=== PATIENT | male | born 2000 | race Caucasian/White ===

== ENCOUNTER 2023-01-23 06:17 | Emergency (ER) | payer OTHER, SELFPAY ==
[2023-01-23 06:24] VITALS: BP 132/96; BP 137/88; PULSE 107; PULSE 86; RESP 16; TEMP 36.4; O2SAT 98; O2SAT 99; BMI 21.9
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
--- OUTSIDE RECORDS SUMMARY | 2023-01-23 06:50 | XMS_ITS | Continuity of Care Document ---
Author Name Unknown Organization [facility] ter Address [address] [place] [address]- Care Team Providers Care Flagsetter Name Role Phone Ttio Solomon MD, Orlando Bustamante Primary Care Physicia n Encounter [facility] [place] Date(s): 03/28/21 - 03/28/[address] [address]- Encounter Diagnosis Hyperemesis(Final) - 03/28/21 Discharge Disposition: A-D/C Home Attending Physician: Leandro Bergman MD Admitting Physician: Leandro Bergman MD Referring Physician: Not on Staff, Referring MD Allergies, Adverse Reactions, Alerts No Known Medication Allergies Substance Reaction Severity Status Apples Hives Active Bananas Hives Active Kiwi Hives Active Melon Hives Active Immunizations Given and Recorded Vaccine Date Status Refusal Reason tetanus/diphtheria/pertussis, acel(Tdap) 02/08/21 Given tetanus/diphtheria/pertussis, acel(Tdap) 08/12/12 Given influenza virus vaccine, inactivated 1 07/16/09 Gi fatimah 1Result Comment: Lot Number [id number] Medications albuterol 0.083% inhalation solution 6 mL [...] Vomiting, # 10 tablet, 0 Refills, Maintenance, 03/10/19 15:52:38 EDT, Tablet Start Date: 01/06/19 Status: Ordered Problem List Condition Effective Dates Status Health Status Inform ant Asthma(Confirmed) Active Mood disorder(Confirmed) Active Vital Signs Most recent to oldest [Reference Range]: 1 2 Oxygen Saturation [94-100 %] 100 % (03/28/21 10:54 AM) 98 % (03/28/21 10:27 AM) Pulse Rate [55-90 bpm] 43 bpm *L* (03/28/21 10:54 AM) 62 bpm (03/28/21 10:27 AM) Blood Pressure [90-138/55-84 mm Hg] 130/ 86mm Hg (03/28/21 10:54 AM) 128/91mm Hg (03/28/21 10:27 AM) Respiratory Rate [16-30 br/min] 18 br/mi n (03/28/21 10:54 AM) 19 br/min (03/28/21 10:27 AM) Temperature [96.8-100.4 DegF] 98.3 DegF (03/28/21 10:27 AM) Mode of Delivery (Oxygen) Room air (03/28/21 10:54 AM) Room air (03/28/21 10:27 AM) Blood pressure sites Arm, left (03/28/21 10:27 AM) Temperature Route Oral (03/28/21 10:27 AM) Social History Social History Type Response Smoking Status 10 or more cigarette s (1/2 pack or more)/day in last 30 days entered on: 01/03/19 Sex
--- OUTSIDE RECORDS SUMMARY | 2023-01-23 06:50 | XMS_ITS | Continuity of Care Document ---
Author Name Unknown Organization [facility] Address [address] [place] [address]- Care Team Providers Care Solutions Architect Consultant Name Role Phone Tito Solomon MD, Orlando Bustamante Primary Care Physicia n Encounter [facility] [place] Date(s): 12/16/22 - 01/15/23 [facility] [address] [place] [address] Attending Physician: Admtr, [id number] Admitting Physician: Admtr, Ar8 Referring Physician: Admtr, Ar8 Allergies, Adverse Reactions, Alerts No Known Medication Allergies Substance Reaction Severity Status Apples Hives Active Bananas Hives Active Kiwi Hives Active Melon Hives Active Immunizations Given and Recorded Vaccine Date Status Refusal Reason tetanus/diphtheria/pertussis, acel(Tdap) 02/08/21 Given tetanus/diphtheria/pertussis, acel(Tdap) 08/12/12 Given influenza virus vaccine, inactivated 1 07/16/09 Gi fatimah 1Result Comment: Lot Number [id number] Medications albuterol 0.083% inhalation solution 6 mL [...] Date: 01/06/19 Status: Ordered Problem List Condition Confirmation Course Effective Dates Status Health St [facility] Informant Asthma Confirmed Active Mood disorder Confirmed Active Social History Social History Type Response Smoking Status 10 or more cigarette s (1/2 pack or more)/day in last 30 days entered on: 01/03/19 Sex Patient Care team information Care Team Personnel Name: Orlando Webb MD Position: [facility] General Pediatrics MD Member Role: PCP Address: Address: [address] [place] [id number] Name: Mary Ragland LPN Position: [facility] Outreach Member Role: Lifetime Consulting Physician Care Team Related Persons Name: CUONG VARMA Address: home [address] [place] [id number] Name: JUDIE VARMA Address: home [address] [place] [id number]
--- OUTSIDE RECORDS SUMMARY | 2023-01-23 06:50 | XMS_ITS | Continuity of Care Document ---
Author Name Unknown Organization [facility] Address [address] [place] [address]- Care Team Providers Care Automobile Brakes Bonder Name Role Phone Tito Solomon MD, Orlando Bustamante Primary Care Physicia n [place] [facility] [place]13[place] - 11/13/[address] [address]- Discharge Disposition: A-D/C Walkout Attending Physician: Not on Staff, Attending MD Admitting Physician: Not on Staff, Admitting MD Referring Physician: Not on Staff, Referring MD Allergies, Adverse Reactions, Alerts No Known Medication Allergies Substance Reaction Severity Status Apples Hives Active Bananas Hives Active Kiwi Hives Active Melon Hives Active Immunizations Given and Recorded Vaccine Date Status Refusal Reason tetanus/diphtheria/pertussis, acel(Tdap) 02/08/21 Given tetanus/diphtheria/pertussis, acel(Tdap) 08/12/12 Given influenza virus vaccine, inactivated 1 07/16/09 Gi fatimah 1Result Comment: Lot Number [id number] Medications albuterol 0.083% inhalation solution 6 mL [...] Asthma Confirmed Active Mood disorder Confirmed Active Vital Signs Most recent to oldest [Reference Range]: 1 2 Oxygen Saturation [94-100 %] 100 % (11/13/22 12:33 PM) 100 % (11/13/22 10:29 AM) Pulse Rate [55-90 bpm] 72 bpm (11/13/22 12:33 PM) 70 bpm (11/13/22 10:29 AM) Blood Pressure [90-138/55-84 mm Hg] 130/ 84mm Hg (11/13/22 12:33 PM) 132/89mm Hg (11/13/22 10:29 AM) Respiratory Rate [16-30 br/min] 16 br/mi n (11/13/22 12:33 PM) 16 br/min (11/13/22 10:29 AM) Temperature [96.8-100.4 DegF] 98.2 DegF (11/13/22 12:33 PM) 98.1 DegF (11/13/22 10:29 AM) Liters per Minute 0 L/min (11/13/22 10:29 AM) Mode of Delivery (Oxygen) Room air (11/13/22 12:33 PM) Room air (11/13/22 10:29 AM) Blood pressure sites Arm, right (11/13/22 12:33 PM) Arm, right (11/13/22 10:29 AM) Temperature Route Oral (11/13/22 12:33 PM) Oral (11/13/22 10:29 AM) Social History Social History Type Response Smoking Status 10 or more cigarette s (1/2 pack or more)/day in last 30 days entered on: 01/03/19 Sex Patient Care team information Care Team Personnel Name: Orlando Webb MD Position: [facility] General Pediatrics MD Member Role: PCP Address: Address: [address] [place] [address], [place] [address]- Name: Mary Ragland LPN Position: [facility] Outreach Member Role: Lifetime Consulting Physician Care Team Related Persons Name: CUONG VARMA Address: home [address] [place] [id number] Name: JUDIE VARMA Address: home [address] [place] [id number]
[2023-01-23 07:01] VITALS: BP 139/90; PULSE 73; RESP 20; O2SAT 98
[2023-01-23 07:12] LABS: MANUAL DIFF FLAG NO
[2023-01-23 07:15] LABS: Basophils Percent Auto 0.1 % (0-2); Eosinophils Percent Auto 0.4 % (0-4); Hematocrit 45.1 % (42.0-52.0); Hemoglobin 15.9 g/dl (14.0-18.0); Imm Gran Abs Auto 0.02 X10*3/uL (0.00-0.03); Imm Gran Pct Auto 0.2 % (0.0-0.4); Lymphocytes Absolute Auto 1.6 X10*3/uL (1.2-4.9); Mean Corpuscular HGB Conc 35.3 g/dl (31.0-36.0); Mean Corpuscular Hemoglobin 30.8 pg (27.0-33.0); Mean Corpuscular Volume 87.2 fL (80.0-98.0); Monocytes Absolute Auto 1.1 X10*3/uL (0.1-1.2); Monocytes Percent Auto 11.6 % (2-11); Neutrophils Absolute Auto 6.5 x10*3/uL (2.0-8.3); Neutrophils Percent Auto 70.7 % (45-73); Platelet Count 186 X10*3/uL (160-400); Red Blood Count 5.17 X10*6/uL (4.60-5.80); Red Cell Distribution Width 11.9 % (11.0-16.0); White Blood Count 9.2 X10*3/uL (4.8-10.8)
--- NOTE | 2023-01-23 07:28 | ED.GENADULT ---
HPI - General Adult General Chief complaint: Abdominal Pain Stated complaint: vomiting w/low abd pain per ems Time Seen by Provider: 01/23/23 06:44 Source: patient Mode of arrival: EMS History of Present Illness HPI narrative: 22-year-old male with arrival via EMS for nausea and vomiting for 2 days and subsequent development of lower abdominal discomfort. Patient states he has had nausea and vomiting as well as diarrhea with a sick contact of his stepdaughter. Related Data Previous Rx's Medication Instructions Recorded ondansetron HCl 4 mg tablet 4 mg PO Q8H PRN nausea and 01/23/23 vomiting 4 days #14 tabs Allergies Allergy/AdvReac Type Severity Reaction Status Date / Time ENVIRONMENTAL Allergy Unknown UNKNOWN Uncoded 07/16/20 16:57 Review of Systems Review of Systems: Pertinent positives and negatives as stated in HPI [facility] Past Medical History Source: nursing notes reviewed Social History Social History Advance Directives: No Advance Directives Information Provided: No Physical Exam ED Vital Signs: Vital Signs - 24 hr 01/23/23 06:24 01/23/23 07:01 01/23/23 09:05 Temperature 97.6 F Pulse Rate 86 73 44 L Respiratory Rate 16 20 18 Blood Pressure 137/88 139/90 H 123/73 Pulse Oximetry 99 98 98 Oxygen Delivery Method Room Air Room Air Room Air BMI result Body Mass Index 21.9 VITAL SIGNS: Reviewed. GENERAL: Well developed, well nourished, in no acute distress. HEAD: Normocephalic/atraumatic EYES: PERRLA, EOMI LUNGS: Normal breath sounds. No adventitious sounds or accessory muscle use. SpO2<99> CARDIOVASCULAR: Regular rate and rhythm without noted murmurs ABDOMEN: Soft, non-tender, non-distended with bowel sounds. MUSCULOSKELETAL: No tenderness, deformities, or effusions noted on gross inspection. EXTREMITIES: No cyanosis, clubbing or edema. SKIN: Inspection of the skin reveals no rashes NEUROLOGIC: Alert and oriented x 4. Strength and sensation to light touch were grossly intact x 4. Medications Administered Discontinued Medications Generic Name Dose Route Start Last Admin Trade Name Freq PRN Reason Stop Dose Admin Sodium Chloride 1,000 mls @ 999 mls/hr 01/23/23 07:45 01/23/23 08:52 Ns IV 01/23/23 08:45 Infused .Q1H1M KYLE Infusion Sodium Chloride 1,000 mls @ 999 mls/hr 01/23/23 08:00 01/23/23 09:53 Ns IV 01/23/23 09:00 Infused .Q1H1M KYLE Infusion Ondansetron HCl 4 mg 01/23/23 07:31 01/23/23 07:51 Ondansetron Hcl 4 Mg/2 Ml Vial IVPUSH 01/23/23 07:32 4 mg ONCE ONE Administration Ondansetron HCl 4 mg 01/23/23 09:52 01/23/23 10:00 Ondansetron Hcl 4 Mg/2 Ml Vial IVPUSH 01/23/23 09:53 4 mg ONCE ONE Administration Medical Decision Making Medical Decision Making MDM Narrative: 22-year-old male with history and clinical presentation suggestive of gastroenteritis. Last episode of diarrhea was yesterday patient states that this has happened before but he denies any alcohol or drug use and has a positive sick contact. Patient will get lab work, urinalysis, IV fluids, antiemetics. Re-evaluation after 2 L of IV hydration, patient is urinating and has tolerated oral intake, he remains mildly nauseous and will go home with a prescription for antinausea medication for the next 1-2 days. He is otherwise stable for discharge. I reviewed all investigations in my interpretation is there may be a component of either gastroenteritis or cyclical vomiting the latter is unclear at this time as we do not have prior visits but urine [employer] is noted to be positive for marijuana. Differential Diagnosis Please see the discussion above Lab Data Please see the discussion above 01/23/23 07:07 01/23/23 07:07 Labs: Lab Results 01/23/23 01/23/23 01/23/23 Range/Units 07:07 07:07 08:13 WBC 9.2 (4.8-10.8) X10*3/uL RBC 5.17 (4.60-5.80) X10*6/uL Hgb 15.9 (14.0-18.0) g/dl Hct 45.1 (42.0-52.0) % MCV 87.2 (80.0-98.0) fL MCH 30.8 (27.0-33.0) pg MCHC 35.3 (31.0-36.0) g/dl RDW 11.9 (11.0-16.0) % Plt Count 186 (160-400) X10*3/uL MPV 10.0 (9.4-12.4) fL Immature Gran % (Auto) 0.2 (0.0-0.4) % Neut % (Auto) 70.7 (45-73) % Lymph % (Auto) 17.0 L (20-40) % [place] % (Auto) 11.6 H (2-11) % Eos % (Auto) 0.4 (0-4) % Baso % (Auto) 0.1 (0-2) % Lymph # (Auto) 1.6 (1.2-4.9) X10*3/uL [place] # (Auto) 1.1 (0.1-1.2) X10*3/uL Eos # (Auto) 0.0 (0.0-0.4) X10*3/uL Baso # (Auto) 0.0 (0.0-0.2) X10*3/uL Abs Immat Gran (auto) 0.02 (0.00-0.03) X10*3/uL Absolute Neuts (auto) 6.5 (2.0-8.3) x10*3/uL Absolute Nucleated RBC 0.000 (0.0-0.012) X10*3/uL Nucleated RBC % (auto) 0.0 (0.0-0.2) /100WBC Sodium 141 (135-145) mmol/L Potassium 3.3 (3.3-5.1) mmol/L Chloride 95 L (96-108) mmol/L Carbon Dioxide 33 H (22-29) mmol/L Anion Gap 16 (12-20) BUN 28 H (9-16) mg/dL Creatinine 1.00 (0.5-1.4) mg/dL Estim Creat Clear Calc 104.9 Estimated GFR > 60 Random Glucose 128 H (60-115) mg/dL Calcium 10.4 H (8.4-10.2) mg/dL Total Bilirubin 0.7 (0.0-1.0) mg/dL AST 19 (5-37) U/L ALT 14 (0-40) U/L Alkaline Phosphatase 57 (39-117) U/L Total Protein 8.3 H (6.5-8.0) g/dL Albumin 5.2 H (3.5-5.0) g/dL Lipase 11 (8-78) U/L Urine Color Urine Appearance Urine pH (5.0-9.0) Ur Specific [place] (1.005-1.025) Urine Protein (Neg-Trace) mg/dL Urine Glucose (UA) (Negative) mg/dL Urine Ketones (Negative) mg/dL Urine Blood (Negative) Urine Nitrite (Negative) Ur Leukocyte Esterase (Negative) Urine RBC (0-2) /HPF Urine WBC (0-5) /HPF Ur Squamous Epith Cells (0-2) /HPF Urine Bacteria (None Seen) Hyaline Casts (0-2) /LPF Urine Opiates Screen (Not Detect) Urine Fentanyl Screen (Not Detect) Ur Barbiturates Screen (Not Detect) Ur Phencyclidine Scrn (Not Detect) Ur Amphetamines Screen (Not Detect) U Benzodiazepines Scrn (Not Detect) Urine Cocaine Screen (Not Detect) U Marijuana (THC) Screen (Not Detect) COVID-19 (ODILIA) Negative (Negative) COVID-19 Clin Com See Note 01/23/23 01/23/23 Range/Units 09:16 09:16 WBC (4.8-10.8) X10*3/uL RBC (4.60-5.80) X10*6/uL Hgb (14.0-18.0) g/dl Hct (42.0-52.0) % MCV (80.0-98.0) fL MCH (27.0-33.0) pg MCHC (31.0-36.0) g/dl RDW (11.0-16.0) % Plt Count (160-400) X10*3/uL MPV (9.4-12.4) fL Immature Gran % (Auto) (0.0-0.4) % Neut % (Auto) (45-73) % Lymph % (Auto) (20-40) % [place] % (Auto) (2-11) % Eos % (Auto) (0-4) % Baso % (Auto) (0-2) % Lymph # (Auto) (1.2-4.9) X10*3/uL [place] # (Auto) (0.1-1.2) X10*3/uL Eos # (Auto) (0.0-0.4) X10*3/uL Baso # (Auto) (0.0-0.2) X10*3/uL Abs Immat Gran (auto) (0.00-0.03) X10*3/uL Absolute Neuts (auto) (2.0-8.3) x10*3/uL Absolute Nucleated RBC (0.0-0.012) X10*3/uL Nucleated RBC % (auto) (0.0-0.2) /100WBC Sodium (135-145) mmol/L Potassium (3.3-5.1) mmol/L Chloride (96-108) mmol/L Carbon Dioxide (22-29) mmol/L Anion Gap (12-20) BUN (9-16) mg/dL Creatinine (0.5-1.4) mg/dL Estim Creat Clear Calc Estimated GFR Random Glucose (60-115) mg/dL Calcium (8.4-10.2) mg/dL Total Bilirubin (0.0-1.0) mg/dL AST (5-37) U/L ALT (0-40) U/L Alkaline Phosphatase (39-117) U/L Total Protein (6.5-8.0) g/dL Albumin (3.5-5.0) g/dL Lipase (8-78) U/L Urine Color Yellow Urine Appearance Clear Urine pH 7.5 (5.0-9.0) Ur Specific [place] >= 1.030 H (1.005-1.025) Urine Protein 30 (1+) H (Neg-Trace) mg/dL Urine Glucose (UA) Negative (Negative) mg/dL Urine Ketones 15 (Negative) mg/dL Urine Blood Negative (Negative) Urine Nitrite Negative (Negative) Ur Leukocyte Esterase Small (1+) H (Negative) Urine RBC 3-5 H (0-2) /HPF Urine WBC 6-10 (0-5) /HPF Ur Squamous Epith Cells 0-2 (0-2) /HPF Urine Bacteria None Seen (None Seen) Hyaline Casts 3-5 (0-2) /LPF Urine Opiates Screen Not Detected (Not Detect) Urine Fentanyl Screen Not Detected (Not Detect) Ur Barbiturates Screen Not Detected (Not Detect) Ur Phencyclidine Scrn Not Detected (Not Detect) Ur Amphetamines Screen Not Detected (Not Detect) U Benzodiazepines Scrn Not Detected (Not Detect) Urine Cocaine Screen Not Detected (Not Detect) U Marijuana (THC) Screen POSITIVE H (Not Detect) COVID-19 (ODILIA) (Negative) COVID-19 Clin Com Discharge Plan Discharge Clinical Impression: Gastroenteritis Patient Disposition: Home, Self-Care Instructions: Gastroenteritis (ED) Additional Instructions: 1. You have a prescription for antinausea medication in should use this to continue to rehydrate yourself. Recommend that you stick to a bland diet for the next 1-2 days. 2. Follow-up with your primary care provider for additional re-evaluation and outpatient management. Return to the ER for any worsening symptoms. Prescriptions: New ondansetron HCl 4 mg tablet 4 mg PO Q8H PRN (Reason: nausea and vomiting) 4 Days Qty: 14 0RF
[2023-01-23 07:29] LABS: Alanine Aminotransferase 14 U/L (0-40); Albumin Level 5.2 g/dL (3.5-5.0); Alkaline Phosphatase 57 U/L (39-117); Anion Gap 16 (12-20); Aspartate Amino Transferase 19 U/L (5-37); Bilirubin Total 0.7 mg/dL (0.0-1.0); Blood Urea Nitrogen 28 mg/dL (9-16); Calcium 10.4 mg/dL (8.4-10.2); Carbon Dioxide 33 mmol/L (22-29); Chloride 95 mmol/L (96-108); Creatinine Clr Calc Pharmacy 104.9; Estimated Glomerular Filt Rate > 60; Glucose Random 128 mg/dL (60-115); Lipase 11 U/L (8-78); Potassium 3.3 mmol/L (3.3-5.1); Sodium 141 mmol/L (135-145); Total Protein 8.3 g/dL (6.5-8.0)
[2023-01-23] MEDS: 0.9 % Sodium Chloride 1,000 ML 999 ML IV ×2 (07:48→08:52)
[2023-01-23] MEDS: ondansetron HCL 4 MG/2 ML VIAL IVPUSH ×2 (07:51→10:00)
[2023-01-23 08:45] LABS: COVID-19 Test Negative (Negative); IDNOW Serial# 55D5AD1C
[2023-01-23 09:05] VITALS: BP 123/73; PULSE 44; RESP 18; O2SAT 98
[2023-01-23 09:22] LABS: Appearance Urine Clear; Color Urine Yellow; Glucose Urine UA Negative (Negative); Leukocyte Esterase Urine Small (1+) (Negative); Nitrite Urine Negative (Negative); PH 7.5 (5.0-9.0); Specific Gravity - Urine >= 1.030 (1.005-1.025); UMIC TRIGGER UACC YES; Urine Blood Negative (Negative); Urine Ketones 15 mg/dL (Negative); Urine Protein 30 (1+) mg/dL (Neg-Trace)
[2023-01-23 09:32] LABS: Amphetamine Screen Urine Not Detected (Not Detect); Barbiturates, Urine Not Detected (Not Detect); Benzodiazepines Screen Urine Not Detected (Not Detect); Cannabinoid Screen Urine POSITIVE (Not Detect); Cocaine Screen Urine Not Detected (Not Detect); Fentanyl, urine Not Detected (Not Detect); Opiate Screen Urine Not Detected (Not Detect); Phencyclidine Screen Urine Not Detected (Not Detect)
[2023-01-23 09:36] LABS: Bacteria Urine None Seen (None Seen); Squamous Epithelial Cell Urine 0-2 /HPF (0-2); UACC Culture Trigger YES
== END 2023-01-23 10:35 | disposition home or self-care (01) ==
PROVIDERS: Emergency Provider Student in an Organized Health Care Education/Training Program
DX: K52.9 Noninfective gastroenteritis and colitis, unspecified (principal); Z20.822 Contact with and (suspected) exposure to COVID-19; Z20.828 Contact with and (suspected) exposure to other viral communicable diseases; Z79.899 Other long term (current) drug therapy
CPT/HCPCS: 36415; 80053; 80307; 81001; 83690; 85025; 87086; 87635; 96361; 96374; 96376; 99284; J2405

== ENCOUNTER 2023-05-10 18:24 | Emergency (ER) | payer SELFPAY ==
--- NOTE | ~2023-05-10 | XR_ITS ---
EXAMINATION: XR CHEST CLINICAL INFORMATION: Dyspnea, wheezing. COMPARISON: None available. TECHNIQUE: 2 views of the chest were obtained. FINDINGS: Mild peribronchial thickening. No focal infiltrate, pleural effusion or pneumothorax. Normal appearance of the cardiomediastinal silhouette. No acute osseous findings. The visualized upper abdomen is within normal limits. XR/XR chest 2V IMPRESSION: Mild peribronchial thickening which could be seen in the setting of asthma, reactive airway disease or atypical/viral infections. No focal infiltrate. Clear pleural spaces.
[2023-05-10 18:51] VITALS: BP 114/74; PULSE 89; RESP 20; TEMP 36.4; O2SAT 97; BMI 23.6
--- NOTE | 2023-05-10 18:53 | ED_ITS ---
HPI - General Adult General Chief complaint: Dyspnea Stated complaint: Asthma/ Diff breathing Time Seen by Provider: 05/10/23 19:25 Related Data Home Medications Medication Instructions Recorded Confirmed albuterol sulfate 90 mcg/actuation 1 puff inhalation Q4H PRN wheezing 05/10/23 05/10/23 aerosol inhaler (ProAir HFA) budesonide-formoterol HFA 80 2 puff inhalation BID 05/10/23 05/10/23 mcg-4.5 mcg/actuation aerosol inhaler (Symbicort) Previous Rx's Medication Instructions Recorded albuterol sulfate 90 mcg/actuation 2 inh inhalation Q6H PRN shortness 05/10/23 breath activated powder inhaler of breath #1 ea prednisone 20 mg tablet 40 mg PO DAILY #10 tabs 05/10/23 Allergies Allergy/AdvReac Type Severity Reaction Status Date / Time ENVIRONMENTAL Allergy Unknown UNKNOWN Uncoded 07/16/20 16:57 PMFSH Social History Social History Advance Directives: No Advance Directives Information Provided: No Physical Exam ED Vital Signs: Vital Signs - 24 hr 05/10/23 18:51 05/10/23 19:18 05/10/23 20:01 Temperature 97.5 F 97.9 F Pulse Rate 89 81 57 Respiratory Rate 20 20 16 Blood Pressure 114/74 126/68 Pulse Oximetry 97 98 Oxygen Delivery Method Room Air Room Air BMI result Body Mass Index 23.6 Course Course Course Narrative: This is a rapid medical exam: Additional HPI, ROS, PE not included below will be deferred to primary provider. Patient is a 23-year-old male with history of asthma presenting to the emergency department with wheezing and shortness of breath. States he felt fine earlier today and symptoms began while at work, he did not have his rescue inhaler. Denies recent cough or fevers. Patient noted to have inspiratory and expiratory wheezing and decreased lung sounds throughout. O2 97-98% on room air. Unsure if he has ever required intubation for asthma exacerbations. Plan: labs, CXR, patient brought directly to room in the main ED Medications Administered Discontinued Medications Generic Name Dose Route Start Last Admin Trade Name Freq PRN Reason Stop Dose Admin Albuterol Sulfate 2.5 mg 05/10/23 19:53 05/10/23 20:00 Albuterol Sulfate (0.083%) 2.5 Mg/3 Ml Vial.Neb INHALE 05/10/23 19:54 2.5 mg ONCE ONE Administration Albuterol Sulfate 2 puff 05/10/23 19:53 05/10/23 20:00 Albuterol Sulfate 90 Mcg 8 Gm Inhaler INHALE 05/10/23 19:54 2 puff ONCE ONE Administration Prednisone 60 mg 05/10/23 19:53 05/10/23 20:22 Prednisone 20 Mg Tablet PO 05/10/23 19:54 60 mg ONCE ONE Administration Medical Decision Making Lab Data 05/10/23 19:26 05/10/23 19:26 Labs: Lab Results 05/10/23 05/10/23 05/10/23 Range/Units 19:26 19:26 19:26 WBC 7.5 (4.8-10.8) X10*3/uL RBC 4.26 L (4.60-5.80) X10*6/uL Hgb 13.0 L (14.0-18.0) g/dl Hct 38.1 L (42.0-52.0) % MCV 89.4 (80.0-98.0) fL MCH 30.5 (27.0-33.0) pg MCHC 34.1 (31.0-36.0) g/dl RDW 12.4 (11.0-16.0) % Plt Count 172 (160-400) X10*3/uL MPV 9.4 (9.4-12.4) fL Immature Gran % (Auto) 0.1 (0.0-0.4) % Neut % (Auto) 62.8 (45-73) % Lymph % (Auto) 26.3 (20-40) % [place] % (Auto) 8.2 (2-11) % Eos % (Auto) 2.1 (0-4) % Baso % (Auto) 0.5 (0-2) % Lymph # (Auto) 2.0 (1.2-4.9) X10*3/uL [place] # (Auto) 0.6 (0.1-1.2) X10*3/uL Eos # (Auto) 0.2 (0.0-0.4) X10*3/uL Baso # (Auto) 0.0 (0.0-0.2) X10*3/uL Abs Immat Gran (auto) 0.01 (0.00-0.03) X10*3/uL Absolute Neuts (auto) 4.7 (2.0-8.3) x10*3/uL Absolute Nucleated RBC 0.000 (0.0-0.012) X10*3/uL Nucleated RBC % (auto) 0.0 (0.0-0.2) /100WBC Sodium 143 (135-145) mmol/L Potassium 3.8 (3.3-5.1) mmol/L Chloride 108 (96-108) mmol/L Carbon Dioxide 23 (22-29) mmol/L Anion Gap 16 (12-20) BUN 15 (9-16) mg/dL Creatinine 0.79 (0.5-1.4) mg/dL Estim Creat Clear Calc 141.8 Estimated GFR > 60 Random Glucose 89 (60-115) mg/dL Calcium 9.9 (8.4-10.2) mg/dL COVID-19 (ODILIA) Negative (Negative) COVID-19 Clin Com See Note Discharge Plan Discharge Clinical Impression: Asthma with exacerbation Patient Disposition: Home, Self-Care Instructions: Asthma (ED) Prescriptions: New prednisone 20 mg tablet 40 mg PO DAILY Qty: 10 0RF albuterol sulfate 90 mcg/actuation aerosol powdr breath activated 2 inh inhalation Q6H PRN (Reason: shortness of breath) Qty: 1 0RF No Action albuterol sulfate [ProAir HFA] 90 mcg/actuation HFA aerosol inhaler 1 puff INHALATION Q4H PRN (Reason: wheezing) budesonide-formoterol [Symbicort] 80-4.5 mcg/actuation HFA aerosol inhaler 2 puff inhalation BID Referrals: Physician,Unknown J [Primary Care Provider] - 05/17/23 Interventions: ED Discharge Assessment Last Done: 05/10/23 20:29 Discharge Date/Time: 05/10/23 20:31
[2023-05-10 19:18] VITALS: BP 126/68; PULSE 81; RESP 20; TEMP 36.6; O2SAT 98
[2023-05-10 19:30] LABS: MANUAL DIFF FLAG NO
[2023-05-10 19:32] LABS: Basophils Percent Auto 0.5 % (0-2); Eosinophils Absolute Auto 0.2 X10*3/uL (0.0-0.4); Eosinophils Percent Auto 2.1 % (0-4); Hematocrit 38.1 % (42.0-52.0); Imm Gran Abs Auto 0.01 X10*3/uL (0.00-0.03); Imm Gran Pct Auto 0.1 % (0.0-0.4); Lymphocytes Percent Auto 26.3 % (20-40); Mean Corpuscular HGB Conc 34.1 g/dl (31.0-36.0); Mean Corpuscular Hemoglobin 30.5 pg (27.0-33.0); Mean Corpuscular Volume 89.4 fL (80.0-98.0); Mean Platelet Volume 9.4 fL (9.4-12.4); Monocytes Absolute Auto 0.6 X10*3/uL (0.1-1.2); Monocytes Percent Auto 8.2 % (2-11); Neutrophils Absolute Auto 4.7 x10*3/uL (2.0-8.3); Neutrophils Percent Auto 62.8 % (45-73); Platelet Count 172 X10*3/uL (160-400); Red Blood Count 4.26 X10*6/uL (4.60-5.80); Red Cell Distribution Width 12.4 % (11.0-16.0); White Blood Count 7.5 X10*3/uL (4.8-10.8)
[2023-05-10 19:49] LABS: Anion Gap 16 (12-20); Blood Urea Nitrogen 15 mg/dL (9-16); COVID-19 Test Negative (Negative); Calcium 9.9 mg/dL (8.4-10.2); Carbon Dioxide 23 mmol/L (22-29); Chloride 108 mmol/L (96-108); Creatinine Clr Calc Pharmacy 141.8; Estimated Glomerular Filt Rate > 60; Glucose Random 89 mg/dL (60-115); IDNOW Serial# 08D9AD1C; Potassium 3.8 mmol/L (3.3-5.1); Sodium 143 mmol/L (135-145)
--- NOTE | 2023-05-10 19:56 | ED.SOB ---
HPI - SOB/Dyspnea General Chief Complaint: Dyspnea Stated Complaint: Asthma/ Diff breathing Time Seen by Provider: 05/10/23 19:25 History of Present Illness HPI Narrative: Patient is a 24-year-old male presents today with coughing congestion upper respiratory symptoms. Has a history of asthma. 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 [place] sudden shortness of breath wheezing. Patient denies any history of coronary artery disease. Has a history of asthma. Patient has never been intubated in the past. Last ED visit was when he was 10/08 years ago. No diaphoresis. Related Data Home Medications Medication Instructions Recorded Confirmed albuterol sulfate 90 mcg/actuation 1 puff inhalation Q4H PRN wheezing 05/10/23 05/10/23 aerosol inhaler (ProAir HFA) budesonide-formoterol HFA 80 2 puff inhalation BID 05/10/23 05/10/23 mcg-4.5 mcg/actuation aerosol inhaler (Symbicort) Allergies Allergy/AdvReac Type Severity Reaction Status Date / Time ENVIRONMENTAL Allergy Unknown UNKNOWN Uncoded 07/16/20 16:57 Review of Systems Review of Systems: Positive shortness of breath Yes all other systems are reviewed and are negative PMFSH Past Medical History Attestation statement: The following information was validated with the patient. Social History Social History Advance Directives: No Advance Directives Information Provided: No Physical Exam Vital Signs: Vital Signs: Last Vital Signs Temp 97.9 F 05/10/23 19:18 Pulse 81 05/10/23 19:18 Resp 20 05/10/23 19:18 BP 126/68 05/10/23 19:18 Pulse Ox 98 05/10/23 19:18 O2 Del Method Room Air 05/10/23 19:18 BMI result Body Mass Index 23.6 Appearance: Alert. Oriented X3. No acute distress. Eyes: Pupils equal, round and reactive to light. ENT: Pharynx normal. Neck: Normal inspection. Neck supple. No lymph nodes noted. No crepitus CVS: Normal heart rate and rhythm. Pulses normal. Normal S1 and S2 Respiratory: No respiratory distress. Minimal wheezing bilaterally. Abdomen: Soft and nontender. No rigidity. No distention. good BS x4 Skin: Skin warm and dry. Normal skin color. Normal skin turgor. Extremities: No lower extremity edema. Neurovascular intact to all extremities. No Lacerations. No Rash Neuro: Oriented X 3. No motor deficit. No sensory deficit. Moving all extermities. No slurred speech Medical Decision Making Medical Decision Making [facility] Narrative: Patient well appearing no acute distress. Out of albuterol inhalers. Will give patient a inhaler here in the emergency department a dose of steroid was given. Will send the rest the prescription to the pharmacy of choice. Patient's lungs are clear O2 sats 100% on room air chest x-ray did not show any acute infiltrate. No pneumonia no pneumothorax. Patient is currently in stable condition. Patient's COVID test was negative. In stable condition with discharge home Differential Diagnosis COVID, asthma, pneumonia, pneumothorax Lab Data [facility] Lab Attestation statement: I reviewed the patient's lab results. 05/10/23 19:26 05/10/23 19:26 Labs: Lab Results 05/10/23 05/10/23 05/10/23 Range/Units 19:26 19:26 19:26 WBC 7.5 (4.8-10.8) X10*3/uL RBC 4.26 L (4.60-5.80) X10*6/uL Hgb 13.0 L (14.0-18.0) g/dl Hct 38.1 L (42.0-52.0) % MCV 89.4 (80.0-98.0) fL MCH 30.5 (27.0-33.0) pg MCHC 34.1 (31.0-36.0) g/dl RDW 12.4 (11.0-16.0) % Plt Count 172 (160-400) X10*3/uL MPV 9.4 (9.4-12.4) fL Immature Gran % (Auto) 0.1 (0.0-0.4) % Neut % (Auto) 62.8 (45-73) % Lymph % (Auto) 26.3 (20-40) % [place] % (Auto) 8.2 (2-11) % Eos % (Auto) 2.1 (0-4) % Baso % (Auto) 0.5 (0-2) % Lymph # (Auto) 2.0 (1.2-4.9) X10*3/uL [place] # (Auto) 0.6 (0.1-1.2) X10*3/uL Eos # (Auto) 0.2 (0.0-0.4) X10*3/uL Baso # (Auto) 0.0 (0.0-0.2) X10*3/uL Abs Immat Gran (auto) 0.01 (0.00-0.03) X10*3/uL Absolute Neuts (auto) 4.7 (2.0-8.3) x10*3/uL Absolute Nucleated RBC 0.000 (0.0-0.012) X10*3/uL Nucleated RBC % (auto) 0.0 (0.0-0.2) /100WBC Sodium 143 (135-145) mmol/L Potassium 3.8 (3.3-5.1) mmol/L Chloride 108 (96-108) mmol/L Carbon Dioxide 23 (22-29) mmol/L Anion Gap 16 (12-20) BUN 15 (9-16) mg/dL Creatinine 0.79 (0.5-1.4) mg/dL Estim Creat Clear Calc 141.8 Estimated GFR > 60 Random Glucose 89 (60-115) mg/dL Calcium 9.9 (8.4-10.2) mg/dL COVID-19 (ODILIA) Negative (Negative) COVID-19 Clin Com See Note Independent Interpretation I performed an independent interpretation of an: Plain X-Ray Interpretation: Chest x-ray showed no evidence of pneumonia pneumothorax Radiology Impression Discussion of test interpretation with radiology: I have reviewed the radiologist's reading. Discharge Plan Discharge Clinical Impression: Asthma with exacerbation Prescriptions: No Action albuterol sulfate [ProAir HFA] 90 mcg/actuation HFA aerosol inhaler 1 puff INHALATION Q4H PRN (Reason: wheezing) budesonide-formoterol [Symbicort] 80-4.5 mcg/actuation HFA aerosol inhaler 2 puff inhalation BID
[2023-05-10] MEDS: Albuterol Sulfate 90 MCG 8 GM INHALER 2 PUFF INHALE (20:00)
[2023-05-10] MEDS: Albuterol Sulfate (0.083%) 2.5 MG/3 ML VIAL.NEB INHALE (20:00)
[2023-05-10 20:01] VITALS: PULSE 57; RESP 16; O2SAT 99
[2023-05-10] MEDS: predniSONE 20 MG TABLET 60 MG PO (20:22)
== END 2023-05-10 20:31 | disposition home or self-care (01) ==
PROVIDERS: Registered Nurse Emergency; Emergency Provider Emergency Medicine Emergency Medical Services
DX: J45.901 Unspecified asthma with (acute) exacerbation (principal); Z20.822 Contact with and (suspected) exposure to COVID-19
CPT/HCPCS: 36415; 71046; 80048; 85025; 87635; 94640; 99283; 99284

== ENCOUNTER 2023-12-26 11:29 | Emergency (ER) | payer SELFPAY ==
[2023-12-26 11:41] VITALS: BP 131/67; BP 132/90; PULSE 60; PULSE 74; RESP 18; TEMP 37.1; O2SAT 95; O2SAT 98; BMI 22.0
--- NOTE | 2023-12-26 11:41 | ED.GENADULT ---
HPI - General Adult General Chief complaint: Nausea/Vomiting/Diarrhea Stated complaint: ABD PAIN,NAUSEA/VOMITING PER EMS Time Seen by Provider: 12/26/23 14:12 Source: patient Mode of arrival: ambulatory Limitations: no limitations History of Present Illness HPI narrative: 23 yo male with no PMH no surgeries notes his daughter had v/d and then he developed n/v/d and epigastric pain 4 days ago. He can eat at times but he feels very weak and tired. His last diarrhea was yesterday. He denies travel, antibiotic use. He did tolerate some crackers but he overall is not feeling well. complaint: n/v/d Onset (ago): day(s) (4) Location: abdomen Radiation: non-radiation Severity: moderate Quality: aching Pain Consistency: intermittent Relieving factors: none Exacerbating factors: eating Associated symptoms: loss of appetite, nausea/vomiting and other (diarrhea) Treatments prior to arrival: none Related Data Home Medications Medication Instructions Recorded Confirmed albuterol sulfate 90 mcg/actuation 1 puff inhalation Q4H PRN wheezing 05/10/23 05/10/23 aerosol inhaler (ProAir HFA) budesonide-formoterol HFA 80 2 puff inhalation BID 05/10/23 05/10/23 mcg-4.5 mcg/actuation aerosol inhaler (Symbicort) Previous Rx's Medication Instructions Recorded albuterol sulfate 90 mcg/actuation 2 inh inhalation Q6H PRN shortness 05/10/23 breath activated powder inhaler of breath #1 ea prednisone 20 mg tablet 40 mg (2 x 20 mg) PO DAILY #10 tabs 05/10/23 famotidine 20 mg tablet (Pepcid) 20 mg PO DAILY PRN abdominal 12/26/23 discomfort #30 tabs ondansetron 4 mg disintegrating 4 mg PO Q8H PRN nausea and 12/26/23 tablet vomiting #20 tabs Allergies Allergy/AdvReac Type Severity Reaction Status Date / Time ENVIRONMENTAL Allergy Unknown UNKNOWN Uncoded 12/26/23 11:43 Review of Systems Review of Systems: Constitutional : No Weight loss, No Fever, No Chills ENT/Mouth : No sore throat, No Rhinorrhea Eyes: No Swelling, No Redness Cardiovascular : No Chest Pain, No SOB, NoEdema Respiratory : No Cough, No Sputum, No Wheezing Gastrointestinal : Positive Nausea, Positive Vomiting, positive Diarrhea, positive abdominal Pain, No Hematochezia, No Melena Genitourinary : No Dysuria, No Urinary Frequency, No Hematuria, No Urgency Musculoskeletal : No joint pain, No Myalgias, No Joint Swelling Skin : No Skin Lesions, No rash Neuro : No Weakness, No Numbness, No Dizziness, No Headache All other systems reviewed and are negative. [facility] Past Medical History Attestation statement: The following information was validated with the patient. Source: old records reviewed Medical History No pertinent past medical history Social History Social History Smoked in Last 30 Days: No Use of substances other than those prescribed or required for medical reasons: No Advance Directives: No Advance Directives Information Provided: No Physical Exam ED Vital Signs: Vital Signs - 24 hr 12/26/23 11:41 12/26/23 12:05 12/26/23 14:23 Temperature 98.8 F 97.5 F Pulse Rate 60 56 79 Respiratory Rate 18 16 19 Blood Pressure 131/67 135/99 H 117/69 Pulse Oximetry 98 96 100 Oxygen Delivery Method Room Air Room Air Room Air BMI result Body Mass Index 22.0 Appearance: Alert. Oriented X3. No acute distress. Eyes: Pupils equal, round and reactive to light. ENT: Pharynx dry MM Neck: Normal inspection. Neck supple. CVS: Normal heart rate and rhythm. Pulses normal. Respiratory: No respiratory distress. Breath sounds normal. Abdomen: Soft and mild epigastric pain no rebound or guarding Skin: Skin warm and dry. pale skin color. Normal skin turgor. Extremities: No lower extremity edema. No calf ttp Neuro: Oriented X 3. No motor deficit. No sensory deficit. Course Course Course Narrative: This is a rapid medical exam: Additional HPI, ROS, PE not included below will be deferred to primary provider. Patient is a 23-year-old male presenting to the ED via EMS with 4 days of nausea, vomiting, diarrhea. Daughter is sick with similar symptoms and tested positive for the flu. Given Zofran by EMS. Emesis non-bloody, non-bilious. Unable to tolerate anything PO. Vitals stable in triage. Plan: viral swabs, labs Reevaluation(s) Reevaluation #1: signed out to Dr. Blas pending lipase, PO challenge. Medications Administered Discontinued Medications Generic Name Dose Route Start Last Admin Trade Name Brennan PRN Reason Stop Dose Admin Diphenhydramine HCl 25 mg 12/26/23 14:13 12/26/23 14:25 Diphenhydramine Hcl 50 Mg/Ml Vial IVPUSH 12/26/23 14:14 25 mg ONCE ONE Administration Famotidine 20 mg 12/26/23 15:35 12/26/23 15:54 Famotidine/Pf 20 Mg/2 Ml Vial IVPUSH 12/26/23 15:36 20 mg ONCE ONE Administration Sodium Chloride 1,000 mls @ 999 mls/hr 12/26/23 14:15 12/26/23 14:25 Ns IV 12/26/23 15:15 999 mls/hr .Q1H1M KYLE Administration Sodium Chloride 1,000 mls @ 999 mls/hr 12/26/23 14:15 12/26/23 14:25 Ns IV 12/26/23 15:15 999 mls/hr .Q1H1M KYLE Administration Metoclopramide HCl 10 mg 12/26/23 14:13 12/26/23 14:26 Metoclopramide Hcl 10 Mg/2 Ml Vial IVPUSH 12/26/23 14:14 10 mg ONCE ONE Administration Medical Decision Making Medical Decision Making [facility] Narrative: 23 yo male with no sig PMH his daughter had n/v/d and now he has similar illness - they have not traveled or had antibiotic exposure. She is exposed to other children and contracted it at a day program. He has persistent intemrittent symptoms for 4 days - n/v/d and epigastric pain. At this time labs, IVF x 2L, nausea medications and pepcid ordered. Seems viral in nature so appendicitis and cholecystitis unlikely at this time. Differential Diagnosis Differential Diagnoses: The differential diagnosis associated with the presentation includes gastritis, viral syndrome, enteritis Admission/Observation Consideration of admission/observation: Escalation of care including admission/observation considered Lab Data [facility] Lab Attestation statement: I reviewed the patient's lab results. 12/26/23 12:03 12/26/23 12:03 Labs: Lab Results 12/26/23 Range/Units 12:03 WBC 8.9 (4.8-10.8) X10*3/uL RBC 5.17 D (4.60-5.80) X10*6/uL Hgb 15.7 D (14.0-18.0) g/dl Hct 43.0 (42.0-52.0) % MCV 83.2 (80.0-98.0) fL MCH 30.4 (27.0-33.0) pg MCHC 36.5 H (31.0-36.0) g/dl RDW 12.1 (11.0-16.0) % Plt Count 183 (160-400) X10*3/uL MPV 9.5 (9.4-12.4) fL Immature Gran % (Auto) 0.3 (0.0-0.4) % Neut % (Auto) 86.8 H (45-73) % Lymph % (Auto) 9.2 L (20-40) % Thomas % (Auto) 3.6 (2-11) % Eos % (Auto) 0.0 (0-4) % Baso % (Auto) 0.1 (0-2) % Lymph # (Auto) 0.8 L (1.2-4.9) X10*3/uL Thomas # (Auto) 0.3 (0.1-1.2) X10*3/uL Eos # (Auto) 0.0 (0.0-0.4) X10*3/uL Baso # (Auto) 0.0 (0.0-0.2) X10*3/uL Abs Immat Gran (auto) 0.03 (0.00-0.03) X10*3/uL Absolute Neuts (auto) 7.7 (2.0-8.3) x10*3/uL Absolute Nucleated RBC 0.000 (0.0-0.012) X10*3/uL Nucleated RBC % (auto) 0.0 (0.0-0.2) /100WBC Sodium 141 (135-145) mmol/L Potassium 3.6 (3.3-5.1) mmol/L Chloride 97 (96-108) mmol/L Carbon Dioxide 31 H (22-29) mmol/L Anion Gap 17 (12-20) BUN 26 H (9-16) mg/dL Creatinine 0.96 (0.5-1.4) mg/dL Estim Creat Clear Calc 112.2 Estimated GFR > 60 Random Glucose 149 H (60-115) mg/dL Calcium 10.7 H D (8.4-10.2) mg/dL Magnesium 1.9 (1.6-2.6) mg/dL Total Bilirubin 0.9 (0.0-1.0) mg/dL AST 19 (5-37) U/L ALT 15 (0-40) U/L Alkaline Phosphatase 63 (39-117) U/L Total Protein 9.0 H (6.5-8.0) g/dL Albumin 5.4 H (3.5-5.0) g/dL Lipase 8 (8-78) U/L Influenza Type A (PCR) NEGATIVE (Negative) Influenza Type B (PCR) NEGATIVE (Negative) RSV RNA Qual (PCR) NEGATIVE (Negative) SARS-CoV-2 RNA (RT-PCR) NEGATIVE (Negative) External Record Review External record reviewed: Inpatient record Prescription Management I considered prescription management with: Other Discharge Plan Discharge Clinical Impression: Dehydration, Nausea vomiting and diarrhea Patient Disposition: Still a Patient Instructions: Dehydration (ED), Acute Nausea and Vomiting (ED), Acute Diarrhea (ED) Additional Instructions: Your symptoms are consistent with a viral infection, sometimes a virus can last up to 2 weeks. Take Zofran ODT 4 mg pills, 1 pill dissolved in your mouth every 8 hours as needed for nausea and vomiting. For diarrhea I want you to take Imodium 2 mg pills. ?Take 2 pills after the 1st loose, diarrheal stool then 1 pill after each loose, diarrheal stool up to 8 pills per day. ?This usually stops diarrhea within 24 hours. Take Pepcid (famotidine) 20 mg tablets, 1 pill once a day for 30 days, this will reduce the acid in your stomach and help with stomach pain. For the next 24 hours, stay on a LANRE diet (bananas, rice, applesauce, tea and toast). Follow-up with your doctor in 2 days. Please return to the emergency department if your symptoms get worse or if you develop any symptoms that are concerning to you. Prescriptions: New famotidine [Pepcid] 20 mg tablet 20 mg PO DAILY PRN (Reason: abdominal discomfort) Qty: 30 0RF ondansetron 4 mg tablet,disintegrating 4 mg PO Q8H PRN (Reason: nausea and vomiting) Qty: 20 0RF No Action albuterol sulfate [ProAir HFA] 90 mcg/actuation HFA aerosol inhaler 1 puff INHALATION Q4H PRN (Reason: wheezing) budesonide-formoterol [Symbicort] 80-4.5 mcg/actuation HFA aerosol inhaler 2 puff inhalation BID prednisone 20 mg tablet 40 mg PO DAILY Qty: 10 0RF albuterol sulfate 90 mcg/actuation aerosol powdr breath activated 2 inh inhalation Q6H PRN (Reason: shortness of breath) Qty: 1 0RF Stand Alone Forms: Work/School Release
[2023-12-26 12:05] VITALS: BP 135/99; PULSE 56; RESP 16; O2SAT 96
[2023-12-26 12:09] LABS: MANUAL DIFF FLAG NO
[2023-12-26 12:14] LABS: Basophils Percent Auto 0.1 % (0-2); Hemoglobin 15.7 g/dl (14.0-18.0); Imm Gran Abs Auto 0.03 X10*3/uL (0.00-0.03); Imm Gran Pct Auto 0.3 % (0.0-0.4); Lymphocytes Absolute Auto 0.8 X10*3/uL (1.2-4.9); Lymphocytes Percent Auto 9.2 % (20-40); Mean Corpuscular HGB Conc 36.5 g/dl (31.0-36.0); Mean Corpuscular Hemoglobin 30.4 pg (27.0-33.0); Mean Corpuscular Volume 83.2 fL (80.0-98.0); Mean Platelet Volume 9.5 fL (9.4-12.4); Monocytes Absolute Auto 0.3 X10*3/uL (0.1-1.2); Monocytes Percent Auto 3.6 % (2-11); Neutrophils Absolute Auto 7.7 x10*3/uL (2.0-8.3); Neutrophils Percent Auto 86.8 % (45-73); Platelet Count 183 X10*3/uL (160-400); Red Blood Count 5.17 X10*6/uL (4.60-5.80); Red Cell Distribution Width 12.1 % (11.0-16.0); White Blood Count 8.9 X10*3/uL (4.8-10.8)
[2023-12-26 12:30] LABS: Alanine Aminotransferase 15 U/L (0-40); Albumin Level 5.4 g/dL (3.5-5.0); Alkaline Phosphatase 63 U/L (39-117); Anion Gap 17 (12-20); Aspartate Amino Transferase 19 U/L (5-37); Bilirubin Total 0.9 mg/dL (0.0-1.0); Blood Urea Nitrogen 26 mg/dL (9-16); Calcium 10.7 mg/dL (8.4-10.2); Carbon Dioxide 31 mmol/L (22-29); Chloride 97 mmol/L (96-108); Creatinine Clr Calc Pharmacy 112.2; Estimated Glomerular Filt Rate > 60; Glucose Random 149 mg/dL (60-115); Magnesium 1.9 mg/dL (1.6-2.6); Potassium 3.6 mmol/L (3.3-5.1); Sodium 141 mmol/L (135-145)
[2023-12-26 12:49] LABS: Influenza A PCR NEGATIVE (Negative); Influenza B PCR NEGATIVE (Negative); Resp Syncy Virus RNA Qual PCR NEGATIVE (Negative); SARS COV2 PCR INHOUSE NEGATIVE (Negative)
[2023-12-26 14:23] VITALS: BP 117/69; PULSE 79; RESP 19; TEMP 36.4; O2SAT 100
[2023-12-26] MEDS: diphenhydrAMINE HCL 50 MG/ML VIAL 25 MG IVPUSH (14:25)
[2023-12-26] MEDS: 0.9 % Sodium Chloride 1,000 ML 999 ML IV ×2 (14:25)
[2023-12-26] MEDS: Metoclopramide HCl 10 MG/2 ML VIAL IVPUSH (14:26)
--- NOTE | 2023-12-26 14:42 | PC.NURSE ---
a&ox4. vss and up to date. pt presents to the ED d/t n/v/abd pain x 4 days. pt verbalizes abd pain has subsided since he vomited out in the waiting room. pt states he has been around sick contacts at home. states that his daughter tested positive for the flu. pt aware his swabs came back negative. pt also verbalizing feeling extremely dizzy/lightheaded. 20gIV placed in the right AC - medication/IVF administered per provider order. no sob/wob noted. respirations even and unlabored. pt resting comfortably w/ the lights dimmed. plan of care ongoing. call andrews placed within reach.
[2023-12-26] MEDS: Famotidine/PF 20 MG/2 ML VIAL IVPUSH (15:54)
[2023-12-26 16:01] LABS: Lipase 8 U/L (8-78)
[2023-12-26 16:54] LABS: Appearance Urine Clear; Color Urine Dark Yellow; Glucose Urine UA Negative (Negative); Leukocyte Esterase Urine Negative (Negative); Nitrite Urine Negative (Negative); Specific Gravity - Urine >= 1.030 (1.005-1.025); UMIC TRIGGER UACC YES; Urine Blood Negative (Negative); Urine Ketones >=160 mg/dL (Negative); Urine Protein 100 (2+) mg/dL (Neg-Trace)
[2023-12-26 17:19] LABS: Bacteria Urine None Seen (None Seen); Hyaline Casts Urine 0-2 /LPF (0-2); RBC Urine 0-2 /HPF (0-2); Squamous Epithelial Cell Urine 0-2 /HPF (0-2); WBC Urine 0-5 /HPF (0-5)
== END 2023-12-26 17:01 | disposition still patient (30) ==
PROVIDERS: Emergency Medicine; Registered Nurse Emergency; Emergency Provider Emergency Medicine Emergency Medical Services
DX: E86.0 Dehydration (principal); R11.2 Nausea with vomiting, unspecified; R10.13 Epigastric pain; Z11.52 Encounter for screening for COVID-19; Z20.822 Contact with and (suspected) exposure to COVID-19; Z79.899 Other long term (current) drug therapy
CPT/HCPCS: 0241U; 36415; 80053; 81001; 83690; 83735; 85025; 96361; 96374; 96375; 99284; J1200; J2765

== ENCOUNTER 2023-12-28 03:22 | Emergency (ER) | payer SELFPAY ==
[2023-12-28 03:27] VITALS: BP 142/88; PULSE 62; O2SAT 99
[2023-12-28 03:28] VITALS: BP 158/100; PULSE 59; RESP 16; TEMP 36.9; O2SAT 99; BMI 22.0
[2023-12-28] MEDS: ondansetron HCL 4 MG/2 ML VIAL IVPUSH (03:40)
[2023-12-28] MEDS: 0.9 % Sodium Chloride 1,000 ML 999 ML IV ×3 (03:40→06:46)
[2023-12-28 03:59] VITALS: BP 148/94; PULSE 62; RESP 16; TEMP 36.9; O2SAT 99
[2023-12-28 04:00] LABS: Basophils Percent Auto 0.1 % (0-2); Imm Gran Abs Auto 0.01 X10*3/uL (0.00-0.03); Imm Gran Pct Auto 0.1 % (0.0-0.4); Lymphocytes Absolute Auto 1.6 X10*3/uL (1.2-4.9); Lymphocytes Percent Auto 20.8 % (20-40); MANUAL DIFF FLAG NO; Mean Corpuscular HGB Conc 35.7 g/dl (31.0-36.0); Mean Corpuscular Hemoglobin 29.8 pg (27.0-33.0); Mean Corpuscular Volume 83.3 fL (80.0-98.0); Mean Platelet Volume 9.6 fL (9.4-12.4); Monocytes Absolute Auto 0.7 X10*3/uL (0.1-1.2); Neutrophils Absolute Auto 5.4 x10*3/uL (2.0-8.3); Platelet Count 190 X10*3/uL (160-400); Red Blood Count 5.04 X10*6/uL (4.60-5.80); White Blood Count 7.7 X10*3/uL (4.8-10.8)
--- NOTE | 2023-12-28 04:01 | PC.NURSE ---
PT laying in bed, tolerated IV placement well, Zofran given per MAR, NS running, labs sent to lab. Call andrews within reach.
[2023-12-28 04:13] LABS: COVID-19 Test Negative (Negative); IDNOW Serial# 6674DD1D; IDNOW Serial# 9DB6401D; Influenza A Negative (Negative); Influenza B2 Negative (Negative)
[2023-12-28 04:19] LABS: Alanine Aminotransferase 12 U/L (0-40); Albumin Level 4.9 g/dL (3.5-5.0); Alkaline Phosphatase 54 U/L (39-117); Anion Gap 18 (12-20); Aspartate Amino Transferase 17 U/L (5-37); Blood Urea Nitrogen 22 mg/dL (9-16); Calcium 10.3 mg/dL (8.4-10.2); Carbon Dioxide 30 mmol/L (22-29); Chloride 98 mmol/L (96-108); Creatinine Clr Calc Pharmacy 107.7; Estimated Glomerular Filt Rate > 60; Glucose Random 127 mg/dL (60-115); Potassium 2.8 mmol/L (3.3-5.1); Sodium 143 mmol/L (135-145); Total Protein 8.4 g/dL (6.5-8.0)
[2023-12-28 04:46] LABS: Magnesium 2.1 mg/dL (1.6-2.6)
[2023-12-28] MEDS: Potassium Chloride/H20 10 MEQ/100 ML PIGGYBACK 100 MEQ IV ×2 (05:23→06:58)
[2023-12-28 05:30] VITALS: BP 108/73; PULSE 64; RESP 12; TEMP 36.7; O2SAT 96
--- NOTE | 2023-12-28 05:53 | PC.NURSE ---
PT reports palpitations, Dr. Rogers aware, no further orders @ this time.
--- NOTE | 2023-12-28 06:00 | ED_ITS ---
HPI - Nausea/Vomiting/Diarrhea General Chief complaint: Nausea/Vomiting/Diarrhea Stated complaint: vomiting Time Seen by Provider: 12/28/23 03:28 Source: patient Mode of arrival: EMS History of Present Illness HPI Narrative: 23-year-old male without significant past medical history and denies any use of alcohol and states that he has not used cannabis in months presents with the 2nd visit in 3 days for nausea, vomiting and states that his daughter has been sick with a similar illness. Patient was seen on 12/26 and discharged with Zofran but he states that this does not work well for him. Related Data Home Medications Medication Instructions Recorded Confirmed albuterol sulfate 90 mcg/actuation 1 puff inhalation Q4H PRN wheezing 05/10/23 05/10/23 aerosol inhaler (ProAir HFA) budesonide-formoterol HFA 80 2 puff inhalation BID 05/10/23 05/10/23 mcg-4.5 mcg/actuation aerosol inhaler (Symbicort) Previous Rx's Medication Instructions Recorded albuterol sulfate 90 mcg/actuation 2 inh inhalation Q6H PRN shortness 05/10/23 breath activated powder inhaler of breath #1 ea prednisone 20 mg tablet 40 mg (2 x 20 mg) PO DAILY #10 tabs 05/10/23 famotidine 20 mg tablet (Pepcid) 20 mg PO DAILY PRN abdominal 12/26/23 discomfort #30 tabs ondansetron 4 mg disintegrating 4 mg PO Q8H PRN nausea and 12/26/23 tablet vomiting #20 tabs Allergies Allergy/AdvReac Type Severity Reaction Status Date / Time ENVIRONMENTAL Allergy Unknown UNKNOWN Uncoded 12/26/23 11:43 Review of Systems 2 Review of Systems: Pertinent positives and negatives as stated in HPI [facility] Past Medical History Source: nursing notes reviewed Medical History No pertinent past medical history Social History Social History Smoked in Last 30 Days: No Use of substances other than those prescribed or required for medical reasons: No Advance Directives: No Advance Directives Information Provided: Yes Physical Exam 2 Vital Signs: Vital Signs: Last Vital Signs Temp 98.1 F 12/28/23 05:30 Pulse 64 12/28/23 05:30 Resp 12 12/28/23 05:30 BP 108/73 12/28/23 05:30 Pulse Ox 96 12/28/23 05:30 O2 Del Method Room Air 12/28/23 05:30 BMI result Body Mass Index 22.0 VITAL SIGNS: Reviewed. GENERAL: Well developed, well nourished, in no acute distress. HEAD: Normocephalic/atraumatic EYES: PERRLA, EOMI EARS: Ext canals without abnormality, TMs non-bulging and non-erythematous NOSE: Nares patent bilateral OROPHARYNX: no oral lesions noted, posterior pharynx clear and non-erythematous without noted tonsillar enlargement/erythema/exudates NECK: Supple, no adenopathy LUNGS: Normal breath sounds. No adventitious sounds or accessory muscle use. SpO2<96> CARDIOVASCULAR: Regular rate and rhythm without noted murmurs ABDOMEN: Soft, non-tender, non-distended with bowel sounds. MUSCULOSKELETAL: No tenderness, deformities, or effusions noted on gross inspection. EXTREMITIES: No cyanosis, clubbing or edema. SKIN: Inspection of the skin reveals no rashes NEUROLOGIC: Alert and oriented x 4. Strength and sensation to light touch were grossly intact x 4. Medications Administered Generic Name Dose Route Start Last Admin Trade Name Freq PRN Reason Stop Dose Admin Potassium Chloride 10 meq in 100 mls @ 100 mls/hr 12/28/23 05:15 12/28/23 06:58 Potassium Chloride/H20 IV 12/28/23 07:14 100 mls/hr Q1H KYLE Administration Sodium Chloride 1,000 mls @ 999 mls/hr 12/28/23 06:15 12/28/23 06:46 Ns IV 12/28/23 07:15 999 mls/hr .Q1H1M KYLE Administration Discontinued Medications Generic Name Dose Route Start Last Admin Trade Name Freq PRN Reason Stop Dose Admin Diphenhydramine HCl 25 mg 12/28/23 06:05 12/28/23 06:45 Diphenhydramine Hcl 50 Mg/Ml Vial IVPUSH 12/28/23 06:06 25 mg ONCE ONE Administration Sodium Chloride 1,000 mls @ 999 mls/hr 12/28/23 03:30 12/28/23 04:57 Ns IV 12/28/23 04:30 Infused .Q1H1M KYLE Infusion Sodium Chloride 1,000 mls @ 999 mls/hr 12/28/23 04:30 12/28/23 04:59 Ns IV 12/28/23 05:30 999 mls/hr .Q1H1M KYLE Administration Metoclopramide HCl 10 mg 12/28/23 06:05 12/28/23 06:45 Metoclopramide Hcl 10 Mg/2 Ml Vial IVPUSH 12/28/23 06:06 10 mg ONCE ONE Administration Ondansetron HCl 4 mg 12/28/23 03:28 12/28/23 03:40 Ondansetron Hcl 4 Mg/2 Ml Vial IVPUSH 12/28/23 03:29 4 mg ONCE ONE Administration Potassium Chloride 60 meq 12/28/23 05:11 12/28/23 07:01 Potassium Chloride Packet 20 Meq Packet PO 12/28/23 05:12 Not Given ONCE ONE Medical Decision Making Medical Decision Making MDM Narrative: 23-year-old male with history and clinical presentation, DDX: Viral gastroenteritis, cannabis hyperemesis, low clinical suspicion for intra- abdominal infection other than viral. I reviewed all investigations and hematologic indices are negative for leukocytosis/left shift/anemia/thrombocytopenia. Chemistry indices do not demonstrate an JESS but there is a noted low potassium with normal magnesium and otherwise liver enzymes are within normal limits. Viral testing is negative for COVID-19/influenza. Patient repleted with 60 mEq oral potassium chloride as well as 20 mEq IV potassium chloride. Patient declined the liquid potassium chloride replacement so I ordered 60 mEq of the potassium chloride pills. Urine toxicology demonstrates positivity for cannabis which is consistent with clinical presentation and history. Patient to be discharged after completion of IV fluids and potassium. Differential Diagnosis Differential Diagnoses: The differential diagnosis associated with the presentation includes Please see the discussion above Admission/Observation Consideration of admission/observation: Escalation of care including admission/observation considered Please see the discussion above Lab Data [facility] Lab Attestation statement: I reviewed the patient's lab results. Please see the discussion above 12/28/23 03:39 12/28/23 03:39 Labs: Lab Results 12/28/23 12/28/23 12/28/23 Range/Units 03:38 03:39 06:15 WBC 7.7 (4.8-10.8) X10*3/uL RBC 5.04 (4.60-5.80) X10*6/uL Hgb 15.0 (14.0-18.0) g/dl Hct 42.0 (42.0-52.0) % MCV 83.3 (80.0-98.0) fL MCH 29.8 (27.0-33.0) pg MCHC 35.7 (31.0-36.0) g/dl RDW 12.0 (11.0-16.0) % Plt Count 190 (160-400) X10*3/uL MPV 9.6 (9.4-12.4) fL Immature Gran % (Auto) 0.1 (0.0-0.4) % Neut % (Auto) 70.0 (45-73) % Lymph % (Auto) 20.8 (20-40) % [place]oshone % (Auto) 9.0 (2-11) % Eos % (Auto) 0.0 (0-4) % Baso % (Auto) 0.1 (0-2) % Lymph # (Auto) 1.6 (1.2-4.9) X10*3/uL [place]oshone # (Auto) 0.7 (0.1-1.2) X10*3/uL Eos # (Auto) 0.0 (0.0-0.4) X10*3/uL Baso # (Auto) 0.0 (0.0-0.2) X10*3/uL Abs Immat Gran (auto) 0.01 (0.00-0.03) X10*3/uL Absolute Neuts (auto) 5.4 (2.0-8.3) x10*3/uL Absolute Nucleated RBC 0.000 (0.0-0.012) X10*3/uL Nucleated RBC % (auto) 0.0 (0.0-0.2) /100WBC Sodium 143 (135-145) mmol/L Potassium 2.8 L* D (3.3-5.1) mmol/L Chloride 98 (96-108) mmol/L Carbon Dioxide 30 H (22-29) mmol/L Anion Gap 18 (12-20) BUN 22 H (9-16) mg/dL Creatinine 1.00 (0.5-1.4) mg/dL Estim Creat Clear Calc 107.7 Estimated GFR > 60 Random Glucose 127 H (60-115) mg/dL Calcium 10.3 H (8.4-10.2) mg/dL Magnesium 2.1 (1.6-2.6) mg/dL Total Bilirubin 1.0 (0.0-1.0) mg/dL AST 17 (5-37) U/L ALT 12 (0-40) U/L Alkaline Phosphatase 54 (39-117) U/L Total Protein 8.4 H (6.5-8.0) g/dL Albumin 4.9 (3.5-5.0) g/dL Urine Opiates Screen Not Detected (Not Detect) Urine Fentanyl Screen Not Detected (Not Detect) Ur Barbiturates Screen Not Detected (Not Detect) Ur Phencyclidine Scrn Not Detected (Not Detect) Ur Amphetamines Screen Not Detected (Not Detect) U Benzodiazepines Scrn Not Detected (Not Detect) Urine Cocaine Screen Not Detected (Not Detect) U Marijuana (THC) Screen POSITIVE H (Not Detect) COVID-19 (ODILIA) Negative (Negative) COVID-19 Clin Com See Note Influenza Type A (FELISA) Negative (Negative) Influenza Type B (FELISA) Negative (Negative) Influenza A & B Note See Note Independent Interpretation I performed an independent interpretation of an: EKG Interpretation: Normal sinus rhythm, HR-64, no STEMI, VA/QRS/QTC is within normal limits. External Record Review External record reviewed: Outpatient record and Prior outpatient labs Chronic Conditions Marijuana Use Critical Care Time Critical Care Time Critical Care Time: Yes Total Critical Care Time: 60 Attestation: I personally attest to this time spent taking care of the patient. Discharge Plan Discharge Clinical Impression: Cannabis hyperemesis syndrome concurrent with and due to cannabis abuse, Hypokalemia, Cyclical vomiting Patient Disposition: Home, Self-Care Instructions: Hypokalemia (ED), Potassium Content of Foods List (ED), Cannabis Abuse (ED), Cyclic Vomiting Syndrome (ED) Additional Instructions: 1. Stop using marijuana or decrease the amount that you are using as this is contributing to your difficulty with nausea and vomiting. 2. Please review the informational packet that you have been provided and follow-up with your primary care doctor. Return to the ER for any worsening symptoms. Prescriptions: No Action famotidine [Pepcid] 20 mg tablet 20 mg PO DAILY PRN (Reason: abdominal discomfort) Qty: 30 0RF ondansetron 4 mg tablet,disintegrating 4 mg PO Q8H PRN (Reason: nausea and vomiting) Qty: 20 0RF albuterol sulfate [ProAir HFA] 90 mcg/actuation HFA aerosol inhaler 1 puff INHALATION Q4H PRN (Reason: wheezing) budesonide-formoterol [Symbicort] 80-4.5 mcg/actuation HFA aerosol inhaler 2 puff inhalation BID prednisone 20 mg tablet 40 mg PO DAILY Qty: 10 0RF albuterol sulfate 90 mcg/actuation aerosol powdr breath activated 2 inh inhalation Q6H PRN (Reason: shortness of breath) Qty: 1 0RF
--- NOTE | 2023-12-28 06:05 | ECG_ITS ---
Test Reason : CHEST PAIN Blood Pressure : / mmHG Vent. Rate : 177 BPM Atrial Rate : 177 BPM P-R Int : 146 ms QRS Dur : 080 ms QT Int : 244 ms P-R-T Axes : 056 083 044 degrees QTc Int : 418 ms Artifact in tracing Not interpretable No previous ECGs available Referred By: Rachel Rogers Electronically Signed By:ALESSANDRA DUNN
--- NOTE | 2023-12-28 06:25 | ECG_ITS ---
Test Reason : CHEST PAIN Blood Pressure : / mmHG Vent. Rate : 064 BPM Atrial Rate : 064 BPM P-R Int : 164 ms QRS Dur : 100 ms QT Int : 438 ms P-R-T Axes : 088 101 067 degrees QTc Int : 451 ms Normal sinus rhythm Possible Left atrial enlargement Rightward axis Borderline ECG When compared with ECG of 28-DEC-2023 06:13, due to artifact in prior EKG, cannot compare Referred By: Rachel Rogers Electronically Signed By:ALESSANDRA DUNN
[2023-12-28] MEDS: diphenhydrAMINE HCL 50 MG/ML VIAL 25 MG IVPUSH (06:45)
[2023-12-28] MEDS: Metoclopramide HCl 10 MG/2 ML VIAL IVPUSH (06:45)
[2023-12-28 06:49] LABS: Amphetamine Screen Urine Not Detected (Not Detect); Barbiturates, Urine Not Detected (Not Detect); Benzodiazepines Screen Urine Not Detected (Not Detect); Cannabinoid Screen Urine POSITIVE (Not Detect); Cocaine Screen Urine Not Detected (Not Detect); Fentanyl, urine Not Detected (Not Detect); Opiate Screen Urine Not Detected (Not Detect); Phencyclidine Screen Urine Not Detected (Not Detect)
[2023-12-28] MEDS: Potassium Chloride ER 20 MEQ TAB.ER.PRT 60 MEQ PO (08:11)
[2023-12-28 08:18] VITALS: BP 119/75; PULSE 54; RESP 11; TEMP 36.4; O2SAT 99
== END 2023-12-28 09:09 | disposition home or self-care (01) ==
PROVIDERS: Emergency Provider Student in an Organized Health Care Education/Training Program
DX: R11.15 Cyclical vomiting syndrome unrelated to migraine (principal); F12.10 Cannabis abuse, uncomplicated; E87.6 Hypokalemia; Z11.52 Encounter for screening for COVID-19
CPT/HCPCS: 36415; 80053; 80307; 83735; 85025; 87502; 87635; 93005; 96361; 96374; 96375; 99285; J1200; J2405; J2765; J3480

== ENCOUNTER → 2023-12-28 06:05 | Outpatient (BNV) | payer SELFPAY | PROVIDERS: Emergency Provider Student in an Organized Health Care Education/Training Program; Visit Provider Internal Medicine | DX: R07.9 Chest pain, unspecified (principal) | CPT/HCPCS: 93010 ==